=== PATIENT | female | born 1970 | race Caucasian/White ===

== ENCOUNTER → 2018-05-18 | Outpatient (CLI) | payer OTHER | LOC: M LRY 10:58 | DX: M54.2 Cervicalgia (principal); Z53.9 Procedure and treatment not carried out, unspecified reason ==

== ENCOUNTER → 2019-07-29 | Outpatient (REF) | payer OTHER ==
[2019-07-29 12:13] LABS: ALBUMIN 3.6 GM/DL (3.2-5.2); ALT/SGPT 30 U/L (12-78); BILIRUBIN,DIRECT < 0.1 MG/DL (0.0-0.2); BILIRUBIN,TOTAL 0.3 MG/DL (0.2-1.0); TOTAL PROTEIN 6.7 GM/DL (6.4-8.2)
[2019-07-29 12:22] LABS: HEPATITIS B SURFACE ANTIBODY NEGATIVE (POSITIVE)
[2019-07-29 12:33] LABS: HEPATITIS B SURFACE ANTIGEN NEGATIVE (NEGATIVE)
[2019-07-29 13:45] LABS: HEPATITIS B CORE ANTIBODY IGM POSITIVE (NEGATIVE)
[2019-07-31 14:07] LABS: HBV HBV DNA not detected IU/mL (.); HEPATITIS A IgG TOTAL Negative (Negative); HEPATITIS B CORE ANTIBODY IGG Negative (Negative); HEPATITIS BE ANTIBODY Negative (Negative); HEPATITIS BE ANTIGEN Negative (Negative); Lyme Disease IgG/IgM Antibodie <0.91 ISR (0.00-0.90); Lyme Disease IgM Ab Quantitati <0.80 index (0.00-0.79)
== END ==
LOC: M SFHCPLAZ 10:08
PROVIDERS: ATTEND Internal Medicine Infectious Disease
DX: R76.8 Other specified abnormal immunological findings in serum (principal); G62.9 Polyneuropathy, unspecified

== ENCOUNTER → 2021-02-24 | Outpatient (CLI) | payer OTHER ==
--- NOTE | 2021-02-24 13:58 | REP ---
INDICATION: PAIN/CONTUSION COMPARISON: None TECHNIQUE: Five views FINDINGS: The compartments are symmetric and relatively well maintained. There is no acute fracture or destructive osseous lesion. IMPRESSION: Within normal limits <Electronically signed by Faustino Clay > 02/24/21 [id number]
== END ==
LOC: M WUC 13:03
PROVIDERS: ATTEND Physician Assistant
DX: S80.02XA Contusion of left knee, initial encounter (principal); X58.XXXA Exposure to other specified factors, initial encounter; Y92.89 Other specified places as the place of occurrence of the external cause; Y93.9 Activity, unspecified; Y99.9 Unspecified external cause status

== ENCOUNTER 2022-09-11 22:44 | Inpatient (IN) | payer MEDICARE, MEDICAID ==
[~2022-09-11] VITALS: Ht 172.7 cm; Wt 73.8 kg
[2022-09-11] MEDS ORDERED: NS 500 ML IV ONE (23:00)
[2022-09-11] MEDS ORDERED: ONDANSETRON 4MG 2ML VIAL IV ONE (23:10)
[2022-09-11] MEDS: MORPHINE 4 MG/ML 1ML VIAL IV PRN (23:36)
[2022-09-12 00:18] LABS: INR 1.02; PROTHROMBIN TIME 13.6 SECONDS (12.5-14.5)
[2022-09-12 00:19] LABS: PARTIAL THROMBOPLASTIN TIME 30.8 SECONDS (24.8-34.2)
[2022-09-12] MEDS: MORPHINE 4 MG/ML 1ML VIAL IV PRN (00:28)
[2022-09-12 00:31] LABS: BASO # 0.1 10^3/uL (0.0-0.2); BASO % 0.7 % (0.0-1.0); EOS % 0.3 % (0.0-3.0); HEMATOCRIT 36.5 % (36.0-47.0); HEMOGLOBIN 12.3 g/dl (12.0-15.5); LYMPH # 1.9 10^3/uL (1.5-5.0); LYMPH % 21.9 % (24.0-44.0); MEAN CORPUSCULAR HEMOGLOBIN 33.4 pg (27.0-33.0); MEAN CORPUSCULAR HGB CONC 33.7 g/dl (32.0-36.5); MEAN CORPUSCULAR VOLUME 99.2 fl (80.0-96.0); MONO # 0.4 10^3/uL (0.0-0.8); MONO % 4.2 % (2.0-8.0); NEUTROPHILS # 6.4 10^3/uL (1.5-8.5); NEUTROPHILS % 72.3 % (36.0-66.0); PLATELET COUNT, AUTOMATED 169 10^3/uL (150-450); RED BLOOD COUNT 3.68 10^6/uL (4.00-5.40); WHITE BLOOD COUNT 8.8 10^3/uL (4.0-10.0)
[2022-09-12 00:35] LABS: ETHYL ALCOHOL (ETHANOL) 0.244 % (0.000-0.010)
[2022-09-12 00:36] LABS: BLOOD UREA NITROGEN 8 MG/DL (9-23); CALCIUM LEVEL 8.1 MG/DL (8.5-10.1); CARBON DIOXIDE LEVEL 26 MMOL/L (20-31); CHLORIDE LEVEL 101 MMOL/L (98-107); CREATININE FOR GFR 0.43 MG/DL (0.55-1.30); GLOMERULAR FILTRATION RATE > 60.0 (>51); GLUCOSE, FASTING 94 MG/DL (60-100); POTASSIUM SERUM 3.9 MMOL/L (3.5-5.1); SODIUM LEVEL 139 MMOL/L (136-145)
[2022-09-12] MEDS ORDERED: HYDROMORPHONE HCL 0.5 MG/ 0.5 ML SYRINGE IV PRN (01:10)
[2022-09-12] MEDS ORDERED: AMIT25TA17 PO (01:26)
[2022-09-12] MEDS ORDERED: LEVO125T4 PO (01:26)
[2022-09-12] MEDS ORDERED: DULO1CAP5 PO (01:26)
[2022-09-12] MEDS ORDERED: HOME MED LIST COMPLETE! XX SCH (01:30)
[2022-09-12] MEDS ORDERED: NS 1,000 ML IV SCH (01:55)
[2022-09-12] MEDS ORDERED: NS 500 ML IV ONE (01:55)
[2022-09-12] MEDS ORDERED: ONDANSETRON 4MG 2ML VIAL IV PRN ×2 (01:55→13:50)
[2022-09-12] MEDS ORDERED: NICOTINE 21MG/24HR 1 EA TRANSDERMAL TD ONE (02:45)
[2022-09-12 03:12] LABS: RSV AMPLIFICATION NEGATIVE (NEGATIVE)
[2022-09-12] MEDS: HYDROMORPHONE HCL 0.5 MG/ 0.5 ML SYRINGE IV PRN ×2 (03:14→05:57)
[2022-09-12 04:20] VITALS: BP 131/73
[2022-09-12 04:23] LABS: AMPHETAMINES LEVEL URINE NEGATIVE (NEGATIVE); BARBITURATES URINE NEGATIVE (NEGATIVE); BENZODIAZEPINES URINE NEGATIVE (NEGATIVE); COCAINE METABOLITE URINE NEGATIVE (NEGATIVE)
[2022-09-12 04:24] LABS: METHADONE URINE NEGATIVE (NEGATIVE); PHENCYCLIDINE URINE NEGATIVE (NEGATIVE)
[2022-09-12 04:26] LABS: CANNABINOIDS URINE POSITIVE (NEGATIVE); OPIATES URINE POSITIVE (NEGATIVE)
[2022-09-12] MEDS: LEVOTHYROXINE 125MCG TABLET (0.125MG) PO SCH (05:04)
[2022-09-12 07:03] LABS: MAGNESIUM LEVEL 1.4 MG/DL (1.8-2.4)
[2022-09-12 07:05] LABS: ALKALINE PHOSPHATASE 107 U/L (46-116); ALT/SGPT 38 U/L (7.0-40); AST/SGOT 281 U/L (<34); BILIRUBIN,TOTAL 0.5 MG/DL (0.3-1.2); BLOOD UREA NITROGEN 8 MG/DL (9-23); CALCIUM LEVEL 7.8 MG/DL (8.5-10.1); CARBON DIOXIDE LEVEL 23 MMOL/L (20-31); CHLORIDE LEVEL 103 MMOL/L (98-107); CREATININE FOR GFR 0.38 MG/DL (0.55-1.30); GLOMERULAR FILTRATION RATE > 60.0 (>51); GLUCOSE, FASTING 87 MG/DL (60-100); PHOSPHORUS LEVEL 4.4 MG/DL (2.5-4.9); POTASSIUM SERUM 3.7 MMOL/L (3.5-5.1); SODIUM LEVEL 135 MMOL/L (136-145); TOTAL PROTEIN 5.7 G/DL (5.7-8.2)
[2022-09-12 07:07] LABS: THYROID STIMULATING HORMONE 6.364 uIU/ML (0.55-4.78)
[2022-09-12] MEDS ORDERED: MAGNESIUM OXIDE 400MG TAB (MAG-OX) PO ONE (07:25)
[2022-09-12 08:00] VITALS: BP_SYST 115; BP_SYST 120; BP_DIAS 57; BP_DIAS 80
[2022-09-12 08:16] LABS: THYROXINE (T4) 4.9 UG/DL (4.5-10.9)
[2022-09-12 08:17] LABS: FREE THYROXINE INDEX 1.7 % (1.3-4.8); T UPTAKE 35.7 % (22.5-37.0)
[2022-09-12] MEDS: DULoxetine 30MG CAPSULE (CYMBALTA) PO SCH (09:42)
[2022-09-12] MEDS: THIAMINE 100 MG TAB PO SCH ×2 (09:42→20:00)
[2022-09-12] MEDS: oxyCODONE 5MG TAB PO PRN ×3 (09:42→22:05)
[2022-09-12] MEDS: FOLIC ACID 1MG TAB PO SCH (09:42)
[2022-09-12] MEDS: MULTIVITAMINS/MINERALS THERAP 1 TAB PO SCH (09:43)
[2022-09-12] MEDS: LORazepam 2 MG TAB PO PRN (09:43)
[2022-09-12] MEDS ORDERED: LIDOCAINE 2% 100MG/5ML SDV (FOR ANES.) As Ordered ONE (10:17)
[2022-09-12] MEDS ORDERED: propofoL 200 MG/20 ML VIAL As Ordered ONE (10:17)
[2022-09-12] MEDS ORDERED: ONDANSETRON 4MG 2ML VIAL As Ordered ONE (10:19)
[2022-09-12] MEDS ORDERED: ROCURONIUM BROMIDE 50MG/5ML VIAL As Ordered ONE (11:17)
[2022-09-12 11:22] LABS: ETHYL ALCOHOL (ETHANOL) 0.014 % (0.000-0.010)
[2022-09-12] MEDS ORDERED: MIDAZOLAM INJ 2MG/2ML VIAL As Ordered ONE (12:12)
[2022-09-12] MEDS ORDERED: fentaNYL 100 MCG/2 ML INJECTION As Ordered ONE (12:12)
[2022-09-12] MEDS ORDERED: ceFAZolin 2 GM/D5W 50 ML IV BAG As Ordered ONE (12:26)
[2022-09-12] MEDS ORDERED: SUGAMMADEX SODIUM 500 MG/5 ML VIAL (BRIDION) As Ordered ONE (12:48)
[2022-09-12] MEDS ORDERED: ACETAMINOPHEN 1000MG 100ML IV BAG As Ordered ONE (12:54)
[2022-09-12] MEDS ORDERED: PHENYLephrine 500MCG 5ML (100MCG/ML) SYRINGE As Ordered ONE (13:12)
[2022-09-12] MEDS ORDERED: oxyCODONE 5MG TAB PO PRN (13:50)
[2022-09-12] MEDS ORDERED: LR 1,000 ML IV SCH (13:50)
[2022-09-12] MEDS ORDERED: fentaNYL 100 MCG/2 ML INJECTION IV PRN (13:50)
[2022-09-12] MEDS: MORPHINE 2 MG/ML 1ML VIAL IV PRN ×5 (13:58→23:49)
[2022-09-12 14:50] VITALS: BP 128/85
[2022-09-12 15:05] VITALS: BP 123/68
[2022-09-12] MEDS: OXAZEPAM 15MG CAP PO SCH ×3 (15:27→23:49)
[2022-09-12 19:24] VITALS: BP 152/83
[2022-09-12] MEDS: ACETAMINOPHEN TAB 650MG DOSE (2X325MG) PO PRN ×2 (19:57→23:49)
[2022-09-12] MEDS: ceFAZolin SOD 2 GM in IV 1 EA IV SCH (20:00)
[2022-09-12] MEDS: AMITRIPTYLINE 25MG TABLET PO SCH (20:00)
[2022-09-12 22:00] VITALS: BP 152/83
[2022-09-12] MEDS: HEPARIN SOD (PORCINE) 5000UNITS/ML 1ML VIAL/SYRINGE SC SCH (22:06)
[2022-09-13] MEDS: oxyCODONE 5MG TAB PO PRN ×5 (02:28→21:06)
[2022-09-13 04:31] LABS: BASO % 0.1 % (0.0-1.0); LYMPH # 1.2 10^3/uL (1.5-5.0); LYMPH % 17.3 % (24.0-44.0); MEAN CORPUSCULAR HEMOGLOBIN 33.5 pg (27.0-33.0); MEAN CORPUSCULAR HGB CONC 33.3 g/dl (32.0-36.5); MEAN CORPUSCULAR VOLUME 100.4 fl (80.0-96.0); MONO # 0.6 10^3/uL (0.0-0.8); MONO % 9.2 % (2.0-8.0); NEUTROPHILS % 73.1 % (36.0-66.0); PLATELET COUNT, AUTOMATED 122 10^3/uL (150-450); RED BLOOD COUNT 2.39 10^6/uL (4.00-5.40); WHITE BLOOD COUNT 6.8 10^3/uL (4.0-10.0)
[2022-09-13 04:44] VITALS: BP 101/58
[2022-09-13 05:03] LABS: MAGNESIUM LEVEL 1.7 MG/DL (1.8-2.4)
[2022-09-13 05:07] LABS: ALBUMIN 2.6 G/DL (3.2-5.2); ALKALINE PHOSPHATASE 101 U/L (46-116); ALT/SGPT 29 U/L (7.0-40); AST/SGOT 56 U/L (<34); BILIRUBIN,TOTAL 0.6 MG/DL (0.3-1.2); BLOOD UREA NITROGEN 6 MG/DL (9-23); CALCIUM LEVEL 8.2 MG/DL (8.5-10.1); CARBON DIOXIDE LEVEL 29 MMOL/L (20-31); CHLORIDE LEVEL 100 MMOL/L (98-107); GLOMERULAR FILTRATION RATE > 60.0 (>51); GLUCOSE, FASTING 169 MG/DL (60-100); SODIUM LEVEL 134 MMOL/L (136-145)
[2022-09-13] MEDS: LEVOTHYROXINE 125MCG TABLET (0.125MG) PO SCH (05:08)
[2022-09-13] MEDS: ACETAMINOPHEN TAB 650MG DOSE (2X325MG) PO PRN ×2 (05:08→10:43)
[2022-09-13] MEDS: ceFAZolin SOD 2 GM in IV 1 EA IV SCH (05:08)
[2022-09-13] MEDS: OXAZEPAM 15MG CAP PO SCH ×3 (05:08→22:30)
[2022-09-13] MEDS: HEPARIN SOD (PORCINE) 5000UNITS/ML 1ML VIAL/SYRINGE SC SCH ×3 (05:09→21:08)
[2022-09-13] MEDS: MORPHINE 2 MG/ML 1ML VIAL IV PRN ×4 (05:09→22:36)
[2022-09-13 06:00] VITALS: BP 101/58
[2022-09-13 08:00] VITALS: BP 121/63
[2022-09-13] MEDS: MULTIVITAMINS/MINERALS THERAP 1 TAB PO SCH (09:05)
[2022-09-13] MEDS: DULoxetine 30MG CAPSULE (CYMBALTA) PO SCH (09:05)
[2022-09-13] MEDS: THIAMINE 100 MG TAB PO SCH ×2 (09:05→21:06)
[2022-09-13] MEDS: FOLIC ACID 1MG TAB PO SCH (09:05)
[2022-09-13 12:00] VITALS: BP 109/60
[2022-09-13] MEDS ORDERED: SENOKOT S TAB PO PRN (12:55)
[2022-09-13 13:08] LABS: HEMATOCRIT 23.8 % (36.0-47.0); HEMOGLOBIN 8.1 g/dl (12.0-15.5)
[2022-09-13 13:28] LABS: FOLATE 5.96 NG/ML (>5.4); VITAMIN B12 LEVEL 297 PG/ML (211-911)
[2022-09-13] MEDS: NICOTINE 14 MG/24 HR TRANSDERMAL TD SCH (14:09)
[2022-09-13 16:00] VITALS: BP 100/57
[2022-09-13 20:00] VITALS: BP 110/55
[2022-09-13] MEDS: AMITRIPTYLINE 25MG TABLET PO SCH (21:06)
[2022-09-14] VITALS (7 sets, daily range): BP systolic 90–124; BP diastolic 52–59
[2022-09-14] MEDS: oxyCODONE 5MG TAB PO PRN ×2 (02:15→08:14)
[2022-09-14] MEDS: LORazepam 2 MG TAB PO PRN (04:12)
[2022-09-14 06:00] LABS: BASO % 0.4 % (0.0-1.0); EOS # 0.1 10^3/uL (0.0-0.5); EOS % 0.8 % (0.0-3.0); HEMATOCRIT 22.7 % (36.0-47.0); HEMOGLOBIN 7.4 g/dl (12.0-15.5); LYMPH # 2.8 10^3/uL (1.5-5.0); MEAN CORPUSCULAR HEMOGLOBIN 33.9 pg (27.0-33.0); MEAN CORPUSCULAR HGB CONC 32.6 g/dl (32.0-36.5); MEAN CORPUSCULAR VOLUME 104.1 fl (80.0-96.0); MONO # 0.6 10^3/uL (0.0-0.8); MONO % 7.5 % (2.0-8.0); NEUTROPHILS # 4.3 10^3/uL (1.5-8.5); PLATELET COUNT, AUTOMATED 109 10^3/uL (150-450); RED BLOOD COUNT 2.18 10^6/uL (4.00-5.40); WHITE BLOOD COUNT 7.7 10^3/uL (4.0-10.0)
[2022-09-14] MEDS: HEPARIN SOD (PORCINE) 5000UNITS/ML 1ML VIAL/SYRINGE SC SCH ×2 (06:00→13:54)
[2022-09-14] MEDS: OXAZEPAM 15MG CAP PO SCH (06:15)
[2022-09-14] MEDS: LEVOTHYROXINE 125MCG TABLET (0.125MG) PO SCH (06:15)
[2022-09-14] MEDS: MORPHINE 2 MG/ML 1ML VIAL IV PRN (06:15)
[2022-09-14 06:46] LABS: ALBUMIN 2.4 G/DL (3.2-5.2); ALKALINE PHOSPHATASE 83 U/L (46-116); ALT/SGPT 18 U/L (7.0-40); AST/SGOT 26 U/L (<34); BILIRUBIN,TOTAL 0.2 MG/DL (0.3-1.2); BLOOD UREA NITROGEN < 5 MG/DL (9-23); CALCIUM LEVEL 7.7 MG/DL (8.5-10.1); CARBON DIOXIDE LEVEL 32 MMOL/L (20-31); CHLORIDE LEVEL 101 MMOL/L (98-107); CREATININE FOR GFR 0.44 MG/DL (0.55-1.30); GLOMERULAR FILTRATION RATE > 60.0 (>51); GLUCOSE, FASTING 110 MG/DL (60-100); MAGNESIUM LEVEL 1.5 MG/DL (1.8-2.4); POTASSIUM SERUM 3.4 MMOL/L (3.5-5.1); SODIUM LEVEL 137 MMOL/L (136-145); TOTAL PROTEIN 4.7 G/DL (5.7-8.2)
[2022-09-14] MEDS ORDERED: MAGNESIUM OXIDE 400MG TAB (MAG-OX) PO ONE (07:50)
[2022-09-14] MEDS ORDERED: POTASSIUM CHLORIDE 10MEQ SR TABLET PO ONE (07:50)
[2022-09-14] MEDS: FOLIC ACID 1MG TAB PO SCH (08:04)
[2022-09-14] MEDS: THIAMINE 100 MG TAB PO SCH (08:04)
[2022-09-14] MEDS: MULTIVITAMINS/MINERALS THERAP 1 TAB PO SCH (08:04)
[2022-09-14] MEDS: DULoxetine 30MG CAPSULE (CYMBALTA) PO SCH (08:04)
[2022-09-14] MEDS: NICOTINE 14 MG/24 HR TRANSDERMAL TD SCH (08:06)
[2022-09-14 14:12] LABS: HEMATOCRIT 26.4 % (36.0-47.0); HEMOGLOBIN 8.8 g/dl (12.0-15.5)
[2022-09-14] MEDS ORDERED: OXYC-517 PO (14:31)
[2022-09-14] MEDS ORDERED: THIA100TA PO (14:31)
[2022-09-14] MEDS ORDERED: FOLI1TAB11 PO (14:31)
[2022-09-14] MEDS ORDERED: NICO14PA TD (14:31)
[2022-09-14] MEDS ORDERED: SENN-52 PO (14:31)
[2022-09-14] MEDS ORDERED: ACET1TAB55 PO (14:31)
[2022-09-14] MEDS ORDERED: VITMTA PO (14:31)
[2022-09-14] MEDS ORDERED: OXAZEPAM 15MG CAP PO SCH (21:00)
== END 2022-09-14 15:51 | disposition home health service (06) | DRG 481 ==
LOC: M ED 22:44 → M ED INP 09-12 01:55 → M PCU 09-12 04:12
PROVIDERS: ADMIT Internal Medicine; ATTEND Family Medicine
PROC: 0QS706Z Reposition Left Upper Femur with Intramedullary Internal Fixation Device, Open Approach (ICD-10-PCS; principal; 2022-09-12 13:00)
PROC: 30233N1 Transfusion of Nonautologous Red Blood Cells into Peripheral Vein, Percutaneous Approach (ICD-10-PCS; 2022-09-14)
DX: S72.142A Displaced intertrochanteric fracture of left femur, initial encounter for closed fracture (principal); D62 Acute posthemorrhagic anemia; R55 Syncope and collapse; E03.9 Hypothyroidism, unspecified; G62.9 Polyneuropathy, unspecified; F17.210 Nicotine dependence, cigarettes, uncomplicated; F10.10 Alcohol abuse, uncomplicated; Z79.899 Other long term (current) drug therapy; W18.30XA Fall on same level, unspecified, initial encounter; Y92.009 Unspecified place in unspecified non-institutional (private) residence as the place of occurrence of the external cause

== ENCOUNTER → 2022-09-22 | Outpatient (CLI) | payer MEDICARE, MEDICAID ==
[~2022-09-22] MED LIST: ACET1TAB55 PO; AMIT25TA17 PO; DULO1CAP5 PO; FOLI1TAB11 PO; LEVO125T4 PO; NICO14PA TD; OXYC-517 PO; SENN-52 PO; THIA100TA PO; VITMTA PO
== END ==
LOC: M SOG 07:57
PROVIDERS: ATTEND Orthopaedic Surgery Adult Reconstructive Orthopaedic Surgery
DX: M25.552 Pain in left hip (principal); Z53.9 Procedure and treatment not carried out, unspecified reason

== ENCOUNTER → 2022-09-26 | Outpatient (CLI) | payer MEDICARE, MEDICAID | LOC: M SOG 07:57 | PROVIDERS: ATTEND Orthopaedic Surgery Adult Reconstructive Orthopaedic Surgery | DX: M25.552 Pain in left hip (principal); Z97.8 Presence of other specified devices ==

== ENCOUNTER → 2022-11-01 | Outpatient (CLI) | payer MEDICARE, MEDICAID | LOC: M SOG 08:07 | PROVIDERS: ATTEND Physician Assistant | DX: S72.142D Displaced intertrochanteric fracture of left femur, subsequent encounter for closed fracture with routine healing (principal); Z53.9 Procedure and treatment not carried out, unspecified reason ==

== ENCOUNTER → 2022-11-04 | Outpatient (CLI) | payer MEDICARE, MEDICAID | LOC: M SOG 10:10 | PROVIDERS: ATTEND Physician Assistant | DX: S72.142D Displaced intertrochanteric fracture of left femur, subsequent encounter for closed fracture with routine healing (principal) ==

== ENCOUNTER → 2023-01-03 | Outpatient (CLI) | payer MEDICARE, MEDICAID | LOC: M SOG 13:39 | PROVIDERS: ATTEND Orthopaedic Surgery Hand Surgery | DX: S72.142D Displaced intertrochanteric fracture of left femur, subsequent encounter for closed fracture with routine healing (principal) ==

== ENCOUNTER 2024-02-15 12:42 | Inpatient (IN) | payer MEDICAID, MEDICARE ==
[2024-02-15] VITALS (8 sets, daily range): BP systolic 96–145; BP diastolic 52–78; TEMP 98–99; O2SAT 97–100
[~2024-02-15] VITALS: Ht 172.7 cm; Wt 70.2 kg
[~2024-02-15 12:42] MED LIST changes: -AMIT25TA17 PO; +AMIT25TA19 PO
[2024-02-15 13:25] LABS: BASO % 0.1 % (0.0-1.0); LYMPH # 1.1 10^3/uL (1.5-5.0); LYMPH % 9.4 % (24.0-44.0); MEAN CORPUSCULAR HEMOGLOBIN 35.2 pg (27.0-33.0); MEAN CORPUSCULAR HGB CONC 33.5 g/dl (32.0-36.5); MEAN CORPUSCULAR VOLUME 105.2 fl (80.0-96.0); MONO # 0.6 10^3/uL (0.0-0.8); MONO % 5.1 % (2.0-8.0); NEUTROPHILS # 9.7 10^3/uL (1.5-8.5); NEUTROPHILS % 83.7 % (36.0-66.0); PLATELET COUNT, AUTOMATED 243 10^3/uL (150-450); RED BLOOD COUNT 1.93 10^6/uL (4.00-5.40); WHITE BLOOD COUNT 11.6 10^3/uL (4.0-10.0)
[2024-02-15] MEDS: PANTOPRAZOLE 40MG VIAL IV ONE (13:33)
[2024-02-15] MEDS: SODIUM CHLORIDE 0.9% 1000ML IV STA (13:33)
[2024-02-15 13:38] LABS: INR 1.15; PARTIAL THROMBOPLASTIN TIME 21.8 SECONDS (24.8-34.2); PROTHROMBIN TIME 14.3 SECONDS (12.5-14.5)
[2024-02-15 13:40] LABS: HEMATOCRIT 20.3 % (36.0-47.0)
[2024-02-15 13:41] LABS: HEMOGLOBIN 6.8 g/dl (12.0-15.5)
[2024-02-15 13:49] LABS: LIPASE 58 U/L (12-53)
[2024-02-15 13:51] LABS: ALBUMIN 2.3 G/DL (3.2-5.2); ALKALINE PHOSPHATASE 93 U/L (46-116); ALT/SGPT 31 U/L (7.0-40); AST/SGOT 79 U/L (<34); BILIRUBIN,DIRECT 0.4 MG/DL (<0.4); BILIRUBIN,TOTAL 0.6 MG/DL (0.3-1.2); BLOOD UREA NITROGEN 18 MG/DL (9-23); CALCIUM LEVEL 7.5 MG/DL (8.5-10.1); CARBON DIOXIDE LEVEL 26 MMOL/L (20-31); CHLORIDE LEVEL 100 MMOL/L (98-107); CREATININE FOR GFR 0.47 MG/DL (0.55-1.30); GLOMERULAR FILTRATION RATE > 60.0 (>51); GLUCOSE, FASTING 119 MG/DL (60-100); POTASSIUM SERUM 3.1 MMOL/L (3.5-5.1); SODIUM LEVEL 136 MMOL/L (136-145)
[2024-02-15] MEDS ORDERED: ISOVUE-370 76% 100ML VIAL As Ordered ONE (13:52)
[2024-02-15] MEDS: fentaNYL 100 MCG/2 ML INJECTION IV ONE ×2 (14:05→15:14)
[2024-02-15] MEDS ORDERED: AMOX875T2 PO (15:23)
[2024-02-15] MEDS ORDERED: PRED10TA2 PO (15:23)
[2024-02-15] MEDS ORDERED: HOME MED LIST COMPLETE! XX SCH (15:25)
[2024-02-15] MEDS: SUCRALFATE SUSP 1GM/10ML UD PO ONE (16:14)
[2024-02-15 18:24] LABS: IRON (FE) 121 UG/DL (50-170); PERCENT SATURATION 59.3 % (13.2-45.0); TOTAL IRON BINDING CAPACITY 204 UG/DL (250-425)
[2024-02-15 18:27] LABS: FERRITIN 343.2 NG/ML (7.3-270.7); VITAMIN B12 LEVEL 464 PG/ML (211-911)
[2024-02-15 18:37] LABS: FOLATE 3.42 NG/ML (>5.4)
[2024-02-15] MEDS ORDERED: EPINEPHrine 1MG/10ML SYRINGE 1.5IN As Ordered ONE (18:59)
[2024-02-15] MEDS: LR 1,000 ML IV SCH (19:20)
[2024-02-15] MEDS ORDERED: ONDANSETRON 4MG 2ML VIAL IV PRN (19:20)
[2024-02-15] MEDS ORDERED: fentaNYL 100 MCG/2 ML INJECTION As Ordered ONE (19:23)
[2024-02-15] MEDS ORDERED: LIDOCAINE 2% 100MG/5ML SDV (FOR ANES.) As Ordered ONE (19:23)
[2024-02-15] MEDS ORDERED: propofoL 200 MG/20 ML VIAL As Ordered ONE (19:23)
[2024-02-15] MEDS: SUCRALFATE SUSP 1GM/10ML UD PO SCH (20:17)
[2024-02-15] MEDS: ONDANSETRON 4MG 2ML VIAL IV PRN (21:22)
[2024-02-15] MEDS: MORPHINE 4 MG/ML 1ML VIAL IV PRN (21:22)
[2024-02-16] MEDS: PANTOPRAZOLE 40MG VIAL IV SCH (01:55)
[2024-02-16 04:11] VITALS: BP 112/78; TEMP 98.6; O2SAT 95
[2024-02-16 07:49] VITALS: BP 114/67; TEMP 97; O2SAT 94
[2024-02-16 10:04] LABS: BASO % 0.2 % (0.0-1.0); EOS % 0.2 % (0.0-3.0); HEMATOCRIT 28.2 % (36.0-47.0); LYMPH # 3.8 10^3/uL (1.5-5.0); LYMPH % 30.9 % (24.0-44.0); MEAN CORPUSCULAR HEMOGLOBIN 33.9 pg (27.0-33.0); MEAN CORPUSCULAR HGB CONC 35.5 g/dl (32.0-36.5); MEAN CORPUSCULAR VOLUME 95.6 fl (80.0-96.0); MONO # 0.9 10^3/uL (0.0-0.8); MONO % 7.1 % (2.0-8.0); NEUTROPHILS # 7.3 10^3/uL (1.5-8.5); NEUTROPHILS % 60.1 % (36.0-66.0); PLATELET COUNT, AUTOMATED 225 10^3/uL (150-450); RED BLOOD COUNT 2.95 10^6/uL (4.00-5.40); WHITE BLOOD COUNT 12.2 10^3/uL (4.0-10.0)
[2024-02-16 10:17] LABS: BLOOD UREA NITROGEN 14 MG/DL (9-23); CALCIUM LEVEL 8.2 MG/DL (8.5-10.1); CARBON DIOXIDE LEVEL 25 MMOL/L (20-31); CHLORIDE LEVEL 99 MMOL/L (98-107); CREATININE FOR GFR 0.47 MG/DL (0.55-1.30); GLOMERULAR FILTRATION RATE > 60.0 (>51); GLUCOSE, FASTING 93 MG/DL (60-100); POTASSIUM SERUM 3.1 MMOL/L (3.5-5.1); SODIUM LEVEL 134 MMOL/L (136-145)
[2024-02-16] MEDS: POTASSIUM CHLORIDE 10MEQ SR TABLET PO ONE (12:27)
[2024-02-16 12:28] VITALS: BP 104/73; TEMP 97.2; O2SAT 94
[2024-02-16] MEDS: FOLIC ACID 1MG TAB PO SCH (14:17)
[2024-02-16 16:27] VITALS: BP 113/65; TEMP 97; O2SAT 94
[2024-02-16 20:36] VITALS: BP 101/63; TEMP 97.4; O2SAT 98
[2024-02-16 23:39] VITALS: BP 101/64; TEMP 97.4; O2SAT 94
[2024-02-17] VITALS (7 sets, daily range): BP systolic 101–118; BP diastolic 58–71; TEMP 97–98.8; O2SAT 94–99
[2024-02-17 04:48] LABS: BASO % 0.3 % (0.0-1.0); EOS % 0.3 % (0.0-3.0); HEMATOCRIT 29.1 % (36.0-47.0); HEMOGLOBIN 9.9 g/dl (12.0-15.5); LYMPH # 3.5 10^3/uL (1.5-5.0); LYMPH % 30.7 % (24.0-44.0); MEAN CORPUSCULAR HEMOGLOBIN 33.4 pg (27.0-33.0); MEAN CORPUSCULAR VOLUME 98.3 fl (80.0-96.0); MONO % 8.5 % (2.0-8.0); NEUTROPHILS # 6.7 10^3/uL (1.5-8.5); PLATELET COUNT, AUTOMATED 209 10^3/uL (150-450); RED BLOOD COUNT 2.96 10^6/uL (4.00-5.40); WHITE BLOOD COUNT 11.5 10^3/uL (4.0-10.0)
[2024-02-17 05:10] LABS: BLOOD UREA NITROGEN 9 MG/DL (9-23); CARBON DIOXIDE LEVEL 26 MMOL/L (20-31); CHLORIDE LEVEL 98 MMOL/L (98-107); CREATININE FOR GFR 0.47 MG/DL (0.55-1.30); GLOMERULAR FILTRATION RATE > 60.0 (>51); GLUCOSE, FASTING 113 MG/DL (60-100); POTASSIUM SERUM 3.6 MMOL/L (3.5-5.1); SODIUM LEVEL 130 MMOL/L (136-145)
[2024-02-18] VITALS (7 sets, daily range): BP systolic 101–113; BP diastolic 57–74; TEMP 97.3–98.1; O2SAT 95–98
[2024-02-18] MEDS: SIMETHICONE 80MG CHEW TAB PO SCH (03:34)
[2024-02-18 04:55] LABS: BASO % 0.1 % (0.0-1.0); EOS % 0.2 % (0.0-3.0); HEMATOCRIT 27.8 % (36.0-47.0); HEMOGLOBIN 9.4 g/dl (12.0-15.5); LYMPH # 2.2 10^3/uL (1.5-5.0); LYMPH % 24.2 % (24.0-44.0); MEAN CORPUSCULAR HEMOGLOBIN 33.7 pg (27.0-33.0); MEAN CORPUSCULAR HGB CONC 33.8 g/dl (32.0-36.5); MEAN CORPUSCULAR VOLUME 99.6 fl (80.0-96.0); MONO % 11.1 % (2.0-8.0); NEUTROPHILS # 5.7 10^3/uL (1.5-8.5); NEUTROPHILS % 62.3 % (36.0-66.0); PLATELET COUNT, AUTOMATED 210 10^3/uL (150-450); RED BLOOD COUNT 2.79 10^6/uL (4.00-5.40); WHITE BLOOD COUNT 9.1 10^3/uL (4.0-10.0)
[2024-02-18 05:47] LABS: BLOOD UREA NITROGEN < 5 MG/DL (9-23); CALCIUM LEVEL 7.8 MG/DL (8.5-10.1); CARBON DIOXIDE LEVEL 28 MMOL/L (20-31); CHLORIDE LEVEL 98 MMOL/L (98-107); CREATININE FOR GFR 0.44 MG/DL (0.55-1.30); GLOMERULAR FILTRATION RATE > 60.0 (>51); GLUCOSE, FASTING 117 MG/DL (60-100); POTASSIUM SERUM 3.2 MMOL/L (3.5-5.1); SODIUM LEVEL 130 MMOL/L (136-145)
[2024-02-18] MEDS: KCL 10MEQ/100ML SWI (KRUN) 10 MEQ in IV 1 EA IV SCH (06:33)
[2024-02-18 07:16] LABS: MAGNESIUM LEVEL 1.5 MG/DL (1.8-2.4)
[2024-02-18 09:18] LABS: OSMOLALITY SERUM 267 MOSM/KG (275-295)
[2024-02-18] MEDS: MAG SULF 1GM/100ML (MAG RUN) 1 GM in IV 1 EA IV ONE (10:59)
[2024-02-18] MEDS ORDERED: MORPHINE 2 MG/ML 1ML VIAL IV PRN (16:40)
[2024-02-19 03:53] VITALS: BP 109/66; TEMP 98.1; O2SAT 95
[2024-02-19 06:45] LABS: BASO % 0.1 % (0.0-1.0); EOS % 0.2 % (0.0-3.0); HEMATOCRIT 28.3 % (36.0-47.0); HEMOGLOBIN 9.5 g/dl (12.0-15.5); LYMPH # 1.7 10^3/uL (1.5-5.0); LYMPH % 21.2 % (24.0-44.0); MEAN CORPUSCULAR HEMOGLOBIN 34.2 pg (27.0-33.0); MEAN CORPUSCULAR HGB CONC 33.6 g/dl (32.0-36.5); MEAN CORPUSCULAR VOLUME 101.8 fl (80.0-96.0); MONO # 1.3 10^3/uL (0.0-0.8); MONO % 16.6 % (2.0-8.0); NEUTROPHILS # 4.9 10^3/uL (1.5-8.5); NEUTROPHILS % 60.9 % (36.0-66.0); PLATELET COUNT, AUTOMATED 237 10^3/uL (150-450); RED BLOOD COUNT 2.78 10^6/uL (4.00-5.40)
[2024-02-19 07:06] LABS: BLOOD UREA NITROGEN < 5 MG/DL (9-23); CALCIUM LEVEL 7.7 MG/DL (8.5-10.1); CARBON DIOXIDE LEVEL 30 MMOL/L (20-31); CHLORIDE LEVEL 100 MMOL/L (98-107); GLOMERULAR FILTRATION RATE > 60.0 (>51); GLUCOSE, FASTING 101 MG/DL (60-100); MAGNESIUM LEVEL 1.8 MG/DL (1.8-2.4); POTASSIUM SERUM 3.5 MMOL/L (3.5-5.1); SODIUM LEVEL 132 MMOL/L (136-145)
[2024-02-19 08:00] VITALS: BP 92/52; TEMP 98.2; O2SAT 95
[2024-02-19] MEDS ORDERED: PILL CUTTER 1 EACH XX PRN (11:00)
[2024-02-19 11:46] VITALS: BP 106/58; TEMP 98.2; O2SAT 97
[2024-02-19] MEDS: MOM 30ML SUSPENSION UDC PO ONE (12:35)
[2024-02-19] MEDS: SIMETHICONE 80MG CHEW TAB PO SCH (12:35)
[2024-02-19] MEDS: BISACODYL 10MG SUPP PR SCH (15:54)
[2024-02-19 16:18] VITALS: BP 98/60; TEMP 98.4; O2SAT 98
[2024-02-19 19:00] VITALS: BP 99/55; TEMP 98; O2SAT 95
[2024-02-20] VITALS: BP 91/55; TEMP 98; O2SAT 93
[2024-02-20 03:46] VITALS: BP 94/55; TEMP 97.4; O2SAT 95
[2024-02-20 06:18] LABS: BASO % 0.1 % (0.0-1.0); EOS % 0.4 % (0.0-3.0); HEMATOCRIT 27.1 % (36.0-47.0); HEMOGLOBIN 8.9 g/dl (12.0-15.5); LYMPH # 1.7 10^3/uL (1.5-5.0); LYMPH % 21.1 % (24.0-44.0); MEAN CORPUSCULAR HEMOGLOBIN 33.6 pg (27.0-33.0); MEAN CORPUSCULAR HGB CONC 32.8 g/dl (32.0-36.5); MEAN CORPUSCULAR VOLUME 102.3 fl (80.0-96.0); MONO # 1.3 10^3/uL (0.0-0.8); MONO % 15.9 % (2.0-8.0); NEUTROPHILS # 5.1 10^3/uL (1.5-8.5); NEUTROPHILS % 61.6 % (36.0-66.0); PLATELET COUNT, AUTOMATED 258 10^3/uL (150-450); RED BLOOD COUNT 2.65 10^6/uL (4.00-5.40); WHITE BLOOD COUNT 8.2 10^3/uL (4.0-10.0)
[2024-02-20 06:42] LABS: BLOOD UREA NITROGEN < 5 MG/DL (9-23); CALCIUM LEVEL 7.4 MG/DL (8.5-10.1); CARBON DIOXIDE LEVEL 32 MMOL/L (20-31); CHLORIDE LEVEL 100 MMOL/L (98-107); CREATININE FOR GFR 0.49 MG/DL (0.55-1.30); GLOMERULAR FILTRATION RATE > 60.0 (>51); GLUCOSE, FASTING 93 MG/DL (60-100); POTASSIUM SERUM 3.4 MMOL/L (3.5-5.1); SODIUM LEVEL 134 MMOL/L (136-145)
[2024-02-20 07:31] VITALS: BP 92/58; TEMP 98; O2SAT 99
[2024-02-20] MEDS: POTASSIUM CHLORIDE 10MEQ SR TABLET PO ONE (09:29)
[2024-02-20 11:37] VITALS: BP 107/66; O2SAT 97
[2024-02-20] MEDS ORDERED: PANT40TA29 PO (13:08)
[2024-02-20] MEDS ORDERED: SUCR1ORA PO (13:08)
== END 2024-02-20 15:01 | disposition home or self-care (01) | DRG 378 ==
LOC: M ED 12:42 → EDBD 12:42 → M ED INP 17:26 → M PCU 19:51
PROVIDERS: ADMIT Internal Medicine Nephrology; ATTEND Internal Medicine
PROC: 30233N1 Transfusion of Nonautologous Red Blood Cells into Peripheral Vein, Percutaneous Approach (ICD-10-PCS; 2024-02-15)
PROC: 0W3P8ZZ Control Bleeding in Gastrointestinal Tract, Via Natural or Artificial Opening Endoscopic (ICD-10-PCS; principal; 2024-02-15 18:00)
DX: K28.4 Chronic or unspecified gastrojejunal ulcer with hemorrhage (principal); D62 Acute posthemorrhagic anemia; E46 Unspecified protein-calorie malnutrition; K56.7 Ileus, unspecified; E87.1 Hypo-osmolality and hyponatremia; E87.20 Acidosis, unspecified; I10 Essential (primary) hypertension; E78.5 Hyperlipidemia, unspecified; K44.9 Diaphragmatic hernia without obstruction or gangrene; R55 Syncope and collapse; E53.8 Deficiency of other specified B group vitamins; E83.42 Hypomagnesemia; G89.29 Other chronic pain; E87.6 Hypokalemia; Z79.899 Other long term (current) drug therapy; Z91.011 Allergy to milk products; Z79.52 Long term (current) use of systemic steroids; F17.200 Nicotine dependence, unspecified, uncomplicated; F32.A Depression, unspecified; Z98.84 Bariatric surgery status

== ENCOUNTER 2024-03-03 13:12 | Emergency (ER) | payer MEDICARE ==
[~2024-03-03] VITALS: Ht 172.7 cm; Wt 63.6 kg
[~2024-03-03 13:12] MED LIST changes: +AMOX875T2 PO; +PANT40TA29 PO; +PRED10TA2 PO; +SUCR1ORA PO
[2024-03-03 13:46] LABS: BASO # 0.1 10^3/uL (0.0-0.2); BASO % 0.6 % (0.0-1.0); EOS % 0.4 % (0.0-3.0); HEMATOCRIT 38.1 % (36.0-47.0); HEMOGLOBIN 12.7 g/dl (12.0-15.5); LYMPH # 2.5 10^3/uL (1.5-5.0); LYMPH % 32.3 % (24.0-44.0); MEAN CORPUSCULAR HGB CONC 33.3 g/dl (32.0-36.5); MEAN CORPUSCULAR VOLUME 102.1 fl (80.0-96.0); MONO # 0.5 10^3/uL (0.0-0.8); MONO % 6.8 % (2.0-8.0); NEUTROPHILS # 4.7 10^3/uL (1.5-8.5); NEUTROPHILS % 59.5 % (36.0-66.0); PLATELET COUNT, AUTOMATED 320 10^3/uL (150-450); RED BLOOD COUNT 3.73 10^6/uL (4.00-5.40); WHITE BLOOD COUNT 7.8 10^3/uL (4.0-10.0)
[2024-03-03 14:38] LABS: BLOOD UREA NITROGEN 7 MG/DL (9-23); CARBON DIOXIDE LEVEL 26 MMOL/L (20-31); CHLORIDE LEVEL 104 MMOL/L (98-107); CREATININE FOR GFR 0.48 MG/DL (0.55-1.30); GLOMERULAR FILTRATION RATE > 60.0 (>51); GLUCOSE, FASTING 95 MG/DL (60-100); POTASSIUM SERUM 4.2 MMOL/L (3.5-5.1); SODIUM LEVEL 136 MMOL/L (136-145)
[2024-03-03 14:40] LABS: THYROID STIMULATING HORMONE 9.629 uIU/ML (0.55-4.78)
[2024-03-03] MEDS: MORPHINE 4 MG/ML 1ML VIAL IV ONE ×3 (14:48→21:25)
[2024-03-03] MEDS: NS 1,000 ML IV ONE (14:48)
[2024-03-03 15:10] LABS: C REACTIVE PROTEIN QUANTITATIV < 0.40 MG/DL (<1.0)
[2024-03-03 15:12] LABS: ALBUMIN 2.5 G/DL (3.2-5.2); ALKALINE PHOSPHATASE 132 U/L (46-116); ALT/SGPT 24 U/L (7.0-40); AST/SGOT 45 U/L (<34); BILIRUBIN,DIRECT 0.2 MG/DL (<0.4); BILIRUBIN,TOTAL 0.3 MG/DL (0.3-1.2); CK-MB VALUE MASS < 1.0 NG/ML (<3.6); TOTAL PROTEIN 5.3 G/DL (5.7-8.2)
[2024-03-03 15:18] LABS: CPK CREATINE PHOSPHOKINASE 37 U/L (34-145)
[2024-03-03 15:33] LABS: INR 1.03; PROTHROMBIN TIME 13.2 SECONDS (12.5-14.5)
[2024-03-03] MEDS: GABAPENTIN 100 MG CAP PO ONE (21:25)
[2024-03-03] MEDS: PERCOCET 5MG/325MG TAB PO ONE (23:06)
[2024-03-04] MEDS: PERCOCET 5MG/325MG TAB PO ONE (05:28)
[2024-03-04 08:52] VITALS: BP 132/70; TEMP 98.3
[2024-03-04 08:57] VITALS: O2SAT 96
[2024-03-04] MEDS: MORPHINE 2 MG/ML 1ML VIAL IV PRN (08:57)
== END 2024-03-04 08:52 | disposition short-term general hospital (02) ==
LOC: M ED 13:12 → EDBD 13:12 → M ED 03-04 08:52
DX: R55 Syncope and collapse (principal); R53.1 Weakness; M48.00 Spinal stenosis, site unspecified; M51.36 Other intervertebral disc degeneration, lumbar region; M47.896 Other spondylosis, lumbar region; R00.0 Tachycardia, unspecified; I44.4 Left anterior fascicular block; F17.200 Nicotine dependence, unspecified, uncomplicated; Z91.011 Allergy to milk products; Z79.899 Other long term (current) drug therapy

== ENCOUNTER 2024-04-17 17:38 | Emergency (ER) | payer MEDICARE, SELFPAY ==
[~2024-04-17] VITALS: Ht 172.7 cm; Wt 68.2 kg
[2024-04-17 17:51] VITALS: TEMP 97.5
[2024-04-17] MEDS: PERCOCET 5MG/325MG TAB PO ONE (19:05)
[2024-04-17 19:44] LABS: IONIZED CALCIUM 4.4 MG/DL (4.5-5.3)
[2024-04-17 20:03] LABS: BASO # 0.1 10^3/uL (0.0-0.2); BASO % 0.5 % (0.0-1.0); EOS # 0.2 10^3/uL (0.0-0.5); HEMATOCRIT 36.1 % (36.0-47.0); HEMOGLOBIN 12.1 g/dl (12.0-15.5); HEMOGLOBIN A1c 4.2 % (4.0-6.0); LYMPH # 3.4 10^3/uL (1.5-5.0); LYMPH % 37.3 % (24.0-44.0); MEAN CORPUSCULAR HEMOGLOBIN 31.8 pg (27.0-33.0); MEAN CORPUSCULAR HGB CONC 33.5 g/dl (32.0-36.5); MEAN CORPUSCULAR VOLUME 94.8 fl (80.0-96.0); MONO # 0.6 10^3/uL (0.0-0.8); MONO % 6.3 % (2.0-8.0); NEUTROPHILS # 4.9 10^3/uL (1.5-8.5); NEUTROPHILS % 53.6 % (36.0-66.0); PLATELET COUNT, AUTOMATED 320 10^3/uL (150-450); RED BLOOD COUNT 3.81 10^6/uL (4.00-5.40); WHITE BLOOD COUNT 9.2 10^3/uL (4.0-10.0)
[2024-04-17 20:43] LABS: BLOOD UREA NITROGEN 8 MG/DL (9-23); CALCIUM LEVEL 7.8 MG/DL (8.5-10.1); CARBON DIOXIDE LEVEL 24 MMOL/L (20-31); CHLORIDE LEVEL 103 MMOL/L (98-107); CREATININE FOR GFR 0.42 MG/DL (0.55-1.30); GLOMERULAR FILTRATION RATE > 60.0 (>51); GLUCOSE, FASTING 80 MG/DL (60-100); POTASSIUM SERUM 4.7 MMOL/L (3.5-5.1); SODIUM LEVEL 132 MMOL/L (136-145)
[2024-04-17] MEDS: PREGABALIN 100 MG CAP (LYRICA) PO ONE (21:40)
[2024-04-17] MEDS: MORPHINE 4 MG/ML 1ML VIAL IV PRN (21:40)
[2024-04-17] MEDS: AMITRIPTYLINE 10MG TABLET PO ONE (21:40)
[2024-04-17 22:45] VITALS: BP 99/58; O2SAT 98
[2024-04-17] MEDS ORDERED: AMIT-253 PO (22:45)
[2024-04-17] MEDS ORDERED: PREG100CA PO (22:45)
[2024-04-17] MEDS: OXYCODONE/APAP 5MG/325MG(HOME DOSE PACK) PO ONE (23:06)
[2024-04-19 23:17] LABS: T P ELECTROPHORESIS SO 5.6 g/dL (6.1-8.1)
== END 2024-04-17 23:33 | disposition home or self-care (01) ==
LOC: M ED 17:38 → EDBD 17:38 → M ED 23:33
DX: G60.9 Hereditary and idiopathic neuropathy, unspecified (principal); F17.200 Nicotine dependence, unspecified, uncomplicated; Z91.011 Allergy to milk products; Z98.84 Bariatric surgery status; Z99.3 Dependence on wheelchair

== ENCOUNTER 2024-05-17 16:32 | Emergency (ER) | payer SELFPAY ==
[~2024-05-17] VITALS: Ht 172.7 cm; Wt 54.5 kg
[~2024-05-17 16:32] MED LIST changes: +AMIT-253 PO; +PREG100CA PO
[2024-05-17 16:41] VITALS: BP 101/67; TEMP 100; O2SAT 100
== END 2024-05-17 20:07 | disposition left against medical advice (07) ==
LOC: M ED 16:32 → EDBD 16:32 → M ED 20:07
DX: Z53.21 Procedure and treatment not carried out due to patient leaving prior to being seen by health care provider (principal)